=== PATIENT | female | born 1995 | race African-American/Black ===

== ENCOUNTER 2022-04-04 20:48 | Emergency (ER) | payer OTHER ==
[2022-04-04] MEDS ORDERED: Promethazine HCl 25 MG/ML VIAL ONE (21:51)
== END 2022-04-04 23:10 | disposition home or self-care (01) ==
LOC: CSHERS 20:48
DX: R11.2 Nausea with vomiting, unspecified (principal); R10.9 Unspecified abdominal pain
CPT/HCPCS: 96374; J2550